=== PATIENT | female | born 1955 | race Caucasian/White ===

== ENCOUNTER 2024-09-16 14:33 | Emergency (ER) | payer OTHER, SELFPAY ==
[2024-09-16 14:36] VITALS: BP 124/66; PULSE 69; RESP 18; TEMP 36.3; O2SAT 95; BMI 26.5
--- NOTE | 2024-09-16 15:20 | ED.FALL ---
HPI - Fall <Klaudia Gillespie PA-C - Last Filed: 09/17/24 10:40> General Chief Complaint: Fall Stated Complaint: fell of bed after boipsy procedure Time Seen by Provider: 09/16/24 15:20 Source: patient Mode of arrival: Wheelchair History of Present Illness HPI Narrative: Patient is a pleasant 68-year-old female presents to the emergency room department today with her . The patient was at the [facility], she was undergoing a biopsy to rule out endometrial cancer, she taken Tylenol about an hour before the procedure, she underwent the procedure and it was extremely uncomfortable though she was able to get through the procedure. There was some minor bleeding associated with the procedure, after the procedure the patient was sitting up on the side of the procedure bed, the doctor was standing with her and asked her she was doing okay the patient states she was fine. The doctor stepped away from the bed to go and get the patient's , after the doctor stepped away from the bed the patient became woozy, lightheaded, dizzy the room started spinning, the patient fell off of the bed onto the floor, there was no actual loss of consciousness she had some blackness but did not pass out. She struck her head on the floor, and immediately came to. The doctor was right there they helped her sit up and get up into a chair. And she has been kind of dizzy and woozy ever since. They suggested that she be seen and evaluated in the emergency room department and she has been brought to the emergency room department where she is being evaluated for her sensation of dizziness and what seems to be a vasovagal event at the loss prevention representative vent status post a procedure. Currently at this time the patient has a small superficial noticeable laceration to the lateral aspect of her left eyebrow, she states she still feels a little bit unsteady but currently does not have any sensation of being woozy, if she has no spinning sensation, the room is completely steady, she does not have any nausea, she does not feel as if he is going to vomit. She does not have any blurred vision double vision, she does not feel weak, she does not feel lightheaded. She does not have any abdominal cramping, she does not sensate any type of vaginal bleeding. She does not have any vaginal pain. She has no urinary symptoms. She did have breakfast this morning before she went in for her procedure. No other further complaints currently at this time. Related Data Home Medications Medication Instructions Recorded Confirmed lamotrigine 25 mg tablet 25 mg PO DAILY 09/16/24 09/16/24 lorazepam 1 mg tablet 1 mg PO DAILY PRN 09/16/24 09/16/24 zolpidem 10 mg tablet 10 mg PO BEDTIME 09/16/24 09/16/24 Allergies Allergy/AdvReac Type Severity Reaction Status Date / Time metronidazole Allergy Mild Vomiting Verified 09/16/24 14:41 red yeast rice Allergy Mild Vomiting Verified 09/16/24 14:41 Review of Systems <Klaudia Gillespie PA-C - Last Filed: 09/17/24 10:40> Review of Systems Narrative: Negative except as above Neurologic Comments: Patient appears to have an from her recollection and description to have had a vasovagal event status post a gynecologic procedure to rule out endometrial cancer. She was with a loss prevention representative office and after the procedure had sat up on the side of the bed and felt woozy and dizzy and unfortunately has a vasovagal event and fell off of the bed onto the floor. Hematologic/Lymphatic Comments: Superficial skin laceration to the lateral aspect of her eye status post a fall Patient History <Klaudia Gillespie PA-C - Last Filed: 09/17/24 10:40> Medical History Microalbuminuric diabetic nephropathy Obstructive sleep apnea History of colon polyps History of diabetes insipidus Surgical History History of tonsillectomy History of tubal ligation History of sinus surgery S/P insertion of hypoglossal nerve stimulator Status post partial colectomy History of section Social History Smoking Status: Never smoker Smoking Status: Never smoker alcohol intake frequency: 0-2 drinks per day Substance Use Type: does not use Exam <Klaudia Gillespie PA-C - Last Filed: 09/17/24 10:40> Initial Vital Signs Initial Vital Signs: Vital Signs Temperature 97.4 F L 10/24/24 14:36 Pulse Rate 69 09/16/24 14:36 Respiratory Rate 18 09/16/24 14:36 Blood Pressure 124/66 09/16/24 14:36 Pulse Oximetry 95 09/16/24 14:36 Oxygen Delivery Method Room Air 09/16/24 14:36 Reviewed Const General: cooperative, healthy appearing, comfortable, well developed, well groomed, No acute distress, No in distress, No anxious, No diaphoretic, No disheveled, No frail appearing, No ill appearing and No intoxicated appearing [facility] Head: normal to inspection, normocephalic, No contusion, laceration (Small superficial laceration to the lateral aspect of her left eyebrow) and No raccoon eyes Eyes General: Yes appearance normal, both eyes and all related structures Sclera: sclerae normal Cornea: corneas normal Pupils: PERRL EOM: EOM intact bilaterally Other: There is no nystagmus, Neck Neck: normal visual inspection, full ROM, trachea midline and supple Cardio Rate: regular rate Rhythm: regular rhythm Other: Pulses are strong of the radius. Back/Spine/Pelvis Other: Patient does not have any back pain, she is able to stand unassisted without any issues or problems. Skin Other: Warm pink and dry Neuro General: patient alert, patient awake, patient oriented x3, oriented, gait normal, tone normal, moves all extremities and no focal motor deficits Cranial Nerves: CN's II-XI intact bilaterally and PERRL Cognition: normal cognition Speech: speech normal Gait: normal gait Extrem Other: Range of motion, strength, pulses, cap refill preserved in the upper and lower extremities. No obvious signs of deformity. She does stand from the wheelchair she states she feels a little unsteady but there was no spinning of the room there is no sensations does not feel woozy she does not feel as if she is going to faint she has no sensation of nausea Psych Appearance: grossly normal Mental Status: mental status grossly normal Speech and Movement: speech and movement normal Mood: congruent mood Affect: normal affect Attitude: cooperative Thought Process: normal Thought Content: normal Judgment: judgment good <Kemi Macias MD - Last Filed: 09/18/24 08:07> Initial Vital Signs Initial Vital Signs: Vital Signs Temperature 97.4 F L 09/16/24 14:36 Pulse Rate 69 09/16/24 14:36 Respiratory Rate 18 09/16/24 14:36 Blood Pressure 124/66 09/16/24 14:36 Pulse Oximetry 95 09/16/24 14:36 Oxygen Delivery Method Room Air 09/16/24 14:36 Procedures <Klaudia Gillespie PA-C - Last Filed: 09/17/24 10:40> Laceration Repair Laceration 1: Site: face (Lateral left eyebrow) Side (If applicable): left Size (cm): 0.5 Description: linear Depth: simple, single layer Skin layer closed with: dermabond Scores <Klaudia Gillespie PA-C - Last Filed: 09/17/24 10:40> GCS Citation: 15 Course <Klaudia Gillespie PA-C - Last Filed: 09/17/24 10:40> Vital Signs Vital signs: Vital Signs - 8 hr 09/16/24 14:36 Temperature 97.4 F L Pulse Rate 69 Respiratory Rate 18 Blood Pressure 124/66 Pulse Oximetry 95 Oxygen Delivery Method Room Air Reviewed <Kemi Macias MD - Last Filed: 09/18/24 08:07> Vital Signs Vital signs: Vital Signs - 8 hr 09/16/24 14:36 Temperature 97.4 F L Pulse Rate 69 Respiratory Rate 18 Blood Pressure 124/66 Pulse Oximetry 95 Oxygen Delivery Method Room Air MDM - Fall <Klaudia Gillespie PA-C - Last Filed: 09/17/24 10:40> MDM Narrative Medical decision making narrative: The patient is a very pleasant 68-year-old female who presents to the emergency department with her . Patient was at her loss prevention representative's office sounds like she has been having some ongoing major medical issues over the past year. She has had some vaginal bleeding, and currently is being evaluated and tested for most likely what is endometrial cancer. She gets all of her care down at [facility], she was at the loss prevention representative's office today for a biopsy to rule out which most likely will come back as endometrial cancer and then they will schedule her for unfortunately a hysterectomy at the age of 68 which she has not extremely excited about. However the patient understands that if has directed as needed she will go ahead and have a complete hysterectomy. Currently at this time she underwent the procedure she took Tylenol prior to the procedure as instructed, she ate breakfast prior to the procedure as instructed. She states the procedure was uncomfortable however she states she has a extremely high pain tolerance. The procedure went well there were not any issues or complications during the procedure. She was sitting on the side of the procedure table without any issues or problems the doctor was talking to her asked her she was doing okay the patient stated that she was fine. The doctor stepped away to go get her , the patient then started to feel dizzy and lightheaded and what she describes as woozy and the room started spinning. There was a moment of blackness, and then the patient fell off of the table landing on the floor striking her head there was no actual loss of consciousness the patient was alert the whole time during the fall. She struck her face and sustained a small superficial laceration with some soft tissue swelling to the lateral aspect of the left eyebrow. She was assisted into a sitting position she still remained dizzy and lightheaded and woozy she is placed in a wheelchair she was assisted getting dressed, it was suggested that she be seen and evaluated in the emergency room department for her near-syncope. She has had some previous history of anemia was actually seen and worked up by her primary care doctor within the last 2 weeks for anemia and she states that all of her medical workup was completely normal except for that her cholesterol was extremely high. She has been on a Mediterranean diet for the last year she has lost a considerable amount of weight, she states that the lab work that was done less than 2 weeks ago showed that she has not anemic her iron, folate, transferrin were all completely normal her blood count was normal other electrolytes were normal, her kidney function was normal, her liver enzymes were normal, her liver functions were normal, do not think was quite elevated was her cholesterol what seems strange since he is on Mediterranean diet. She also has had some minor issues with previous echocardiogram showed her EF was preserved but she had some issues with she can not quite remember if it was her mitral valve or possibly her aortic valve that has some minor stenosis but they are considering and trying to schedule her currently for a stress test an exercise stress test. And she was attempting to schedule that today while she was at the loss prevention representative's office. She has never had syncope in the past she has never had near-syncope in the past she did not have any chest pain or shortness of breath today with a syncope episode that she had or near-syncope episode that she had. She did not have any nausea she did not have any clamminess she did not have any sweatiness associated with the episode that she had today. So currently her doctor because her cholesterol was quite elevated even though she has been on the Mediterranean diet is scheduling her for a stress test/exercise stress-induced test to evaluate her for atherosclerosis because of her cholesterol being so elevated. We did discuss a stress test with a stress test involved. Currently this time the patient has remained asymptomatic, her vital signs have been stable, her exam is negative for any neurologic changes, she is able to stand without any assistance. She does not have any signs and symptoms of vertigo, she currently does not have any signs of I am impending vasovagal episode, she has been appropriate she is neurologically intact she has no signs of stroke or TIA, she has remained completely asymptomatic since she has been here in the emergency room department. I have evaluated her skin tear on left side of her lateral eyebrow and it looks like it is amenable to Dermabond which has been applied here in the emergency room department by myself. Currently at this time I do not think really there is any further testing to do such as lab work or CT scan or anything like that. I think most likely what it sounds like his the patient had a procedure and had a vasovagal event associated with the procedure. And at this time I think she can be discharged home with her who will be with her and he can observe her and if there is any changes or any issues or problems that presented himself at home they more than welcome to return back to the emergency room department or call 911 if they feel that they need to be re-evaluated here in the emergency room department. Patient will be discharged stable condition home with her Vasovagal event Discharge Plan Departure Patient Disposition: Home Clinical Impression: Vasovagal near syncope, Dizziness Eyebrow laceration Qualifiers: Encounter type: initial encounter Laterality: left Qualified Code(s): S01.112A - Laceration without foreign body of left eyelid and periocular area, initial encounter Contusion of face Qualifiers: Encounter type: initial encounter Qualified Code(s): S00.83XA - Contusion of other part of head, initial encounter Activity Restrictions/Additional Instructions: Go home and rest Dermabond last 7-10 days if you take care of it please do not rub it you can pat it dry, you can shower normally Please rest No exercise today Take it easy Please follow up on your stress test Stay hydrated Eat a good dinner rita Take her blood pressure at home Return to the emergency room department as needed Please take your time getting up and walking around, take her time, sit for a 2nd get her bearings. At least have her around help you to make sure that you do not get lightheaded again or if you do get lightheaded you have somebody there with use that you do not fall or hurt herself. Only take your Ativan as needed and your Zolpidem pain if you feel like you need it Please follow up with Cardiology for your stress test. Prescriptions: No Action lorazepam 1 mg tablet 1 mg PO DAILY PRN zolpidem 10 mg tablet 10 mg PO BEDTIME lamotrigine 25 mg tablet 25 mg PO DAILY Referrals: [facility] [Other] Stand Alone Forms: Patient Portal/API ED Sign-out <Kemi Macias MD - Last Filed: 09/18/24 08:07> Cosign ED Attending Maureen Attestation: I was immediately available in the department for consultation throughout this patient's visit. Kemi Macias MD
[2024-09-16 16:15] VITALS: BP 154/73; PULSE 68; RESP 19; TEMP 36.3; O2SAT 99
== END 2024-09-16 16:23 | disposition home or self-care (01) ==
PROVIDERS: Emergency Provider Physician Assistant
DX: S00.83XA Contusion of other part of head, initial encounter (principal); S01.112A Laceration without foreign body of left eyelid and periocular area, initial encounter; R55 Syncope and collapse; R42 Dizziness and giddiness; W06.XXXA Fall from bed, initial encounter
CPT/HCPCS: 12011; 99281; 99282